=== PATIENT | male | born 1960 | race Caucasian/White ===

== ENCOUNTER 2021-02-05 12:10 | Outpatient (REF) | payer OTHER, SELFPAY ==
[2021-02-05 13:40] LABS: MANUAL DIFF FLAG NO
[2021-02-05 13:48] LABS: Basophils Absolute Auto 0.1 X10*3/uL (0.0-0.2); Basophils Percent Auto 0.9 % (0-2); Eosinophils Absolute Auto 0.1 X10*3/uL (0.0-0.4); Eosinophils Percent Auto 2.6 % (0-4); Hematocrit 44.5 % (42-52); Hemoglobin 15.5 g/dl (14.0-18.0); Imm Gran Abs Auto 0.02 X10*3/uL (0.00-0.03); Imm Gran Pct Auto 0.4 % (0.0-0.4); Lymphocytes Absolute Auto 1.2 X10*3/uL (1.2-4.9); Lymphocytes Percent Auto 22.6 % (20-40); Mean Corpuscular HGB Conc 34.8 g/dl (31.0-36.0); Mean Corpuscular Hemoglobin 32.2 pg (27.0-33.0); Mean Corpuscular Volume 92.3 fL (80-98); Monocytes Absolute Auto 0.4 X10*3/uL (0.1-1.2); Monocytes Percent Auto 7.7 % (2-11); Neutrophils Absolute Auto 3.6 X10*3/uL (2.0-8.3); Neutrophils Percent Auto 65.8 % (45-73); Platelet Count 207 X10*3/uL (160-400); Red Blood Count 4.82 X10*6/uL (4.60-5.80); Red Cell Distribution Width 11.8 % (11.0-16.0); White Blood Count 5.5 X10*3/uL (4.8-10.8)
[2021-02-05 14:52] LABS: Alanine Aminotransferase 25 U/L (0-40); Albumin Level 4.6 g/dL (3.5-5.0); Alkaline Phosphatase 151 U/L (39-117); Aspartate Amino Transferase 25 U/L (5-37); Bilirubin Direct 0.5 mg/dL (0.0-0.5); Gamma Glutamyl Transpeptidase 27 U/L (11-51); Iron 146 mcg/dL (45-160); Percent Iron Saturation 48 % (15-50); Total Iron Binding Capacity 305 mcg/dL (228-428); Total Protein 7.4 g/dL (6.5-8.0); Unsaturated Iron Binding 159 ug/dL
[2021-02-05 15:14] LABS: Ferritin 108 ng/mL (20-250)
[2021-02-06 13:46] LABS: Ceruloplasmin 25 mg/dL (18-36)
[2021-02-08 12:23] LABS: Mitochondrial Antibodies NEGATIVE (NEGATIVE)
[2021-02-08 13:01] LABS: Anti Nuclear Antibody Screen NEGATIVE (NEGATIVE)
[2021-02-12 11:16] LABS: Smooth Muscle Antibody <20 U (<20)
== END 2021-02-05 12:11 | disposition home or self-care (01) ==
LOC: HO.10HDL 12:10
PROVIDERS: PCP Nurse Practitioner Adult Health; Visit Provider Internal Medicine Gastroenterology
DX: R82.90 Unspecified abnormal findings in urine (principal)
CPT/HCPCS: 36415; 80076; 82390; 82728; 82977; 83540; 85025; 86038; 86039; 86255; 86256

== ENCOUNTER 2022-03-30 11:32 | Outpatient (REF) | payer OTHER, SELFPAY ==
[2022-03-30 12:05] LABS: Hematocrit 44.4 % (42.0-52.0); Hemoglobin 15.4 g/dl (14.0-18.0); Mean Corpuscular HGB Conc 34.7 g/dl (31.0-36.0); Mean Corpuscular Hemoglobin 31.8 pg (27.0-33.0); Mean Corpuscular Volume 91.7 fL (80.0-98.0); Mean Platelet Volume 10.3 fL (9.4-12.4); Platelet Count 217 X10*3/uL (160-400); Red Blood Count 4.84 X10*6/uL (4.60-5.80); Red Cell Distribution Width 11.9 % (11.0-16.0); White Blood Count 4.9 X10*3/uL (4.8-10.8)
[2022-03-30 12:41] LABS: Alanine Aminotransferase 25 U/L (0-40); Albumin Level 4.6 g/dL (3.5-5.0); Alkaline Phosphatase 167 U/L (39-117); Aspartate Amino Transferase 42 U/L (5-37); Bilirubin Direct 0.5 mg/dL (0.0-0.5); Bilirubin Total 1.8 mg/dL (0.0-1.0); Total Protein 7.4 g/dL (6.5-8.0)
[2022-03-30 12:57] LABS: Gamma Glutamyl Transpeptidase 27 U/L (11-51)
[2022-04-04 06:27] LABS: Alk.Phos Iso. Macrohepatic 0 % (<=0); Alk.Phos Isoenzymes Bone 65 % (28-66); Alk.Phos Isoenzymes Intest 0 % (1-24); Alk.Phos Isoenzymes Liver 35 % (25-69); Alk.Phos Isoenzymes Placental 0 % (<=0); Alk.Phos Isoenzymes Total 152 U/L (35-144)
== END 2022-03-30 11:33 | disposition home or self-care (01) ==
LOC: HO.LAB 11:32
PROVIDERS: PCP Nurse Practitioner Adult Health; Visit Provider Internal Medicine Gastroenterology
DX: R79.89 Other specified abnormal findings of blood chemistry (principal)
CPT/HCPCS: 36415; 80076; 82977; 84080; 85027

== ENCOUNTER 2022-05-05 06:30 | Day surgery (SDC) | payer MEDICARE, SELFPAY ==
--- NOTE | 2022-05-04 12:50 | HO.ANESPROP2 ---
Documented by User: Sandie Langston NP 05/04/22 12:50 HPI - Anesthesia Eval Consult details Narrative: 61yo M for Colonoscopy FOR[facility] Past Medical History Medical History (Updated 05/04/22 @ 09:57 by Blanca Morocho, RN) Degenerative joint disease Elevated cholesterol Fatty liver Traumatic brain injury Surgical History Surgical History (Updated 05/04/22 @ 09:59 by Blanca Morocho RN) Hx of appendectomy Hx of cholecystectomy Hx of colonoscopy Hx of knee surgery Hx of total knee replacement Social History Social History Patient Tobacco Use Status: Current someday Tobacco user Tobacco use type: Cigar Use of substances other than those prescribed or required for medical reasons: No Are you DNR?: No Advance Directives: No Advance Directives Information Provided: Yes Meds Allergies Allergy/AdvReac Type Severity Reaction Status Date / Time Penicillin Allergy Unknown diarrhea Verified 05/05/22 06:47 Wellbutrin Allergy Unknown SI, Verified 05/05/22 06:47 Paranoia Home Medications Medication Instructions Recorded Confirmed Last Taken Type Probiotic 05/04/22 05/04/22 Unknown History cholecalciferol (vitamin D3) 25 25 mcg PO DAILY 05/04/22 05/04/22 Unknown History mcg (1,000 unit) capsule (Vitamin D3) turmeric root extract 500 mg 500 mg PO DAILY 05/04/22 05/04/22 Unknown History capsule Exam Exam Date and Time: May 04, 2022 1250 Assessment and Plan Assessment Anesthesia Assessment: Chart Reviewed Documented by User: Elder Beal MD 05/05/22 16:22 [facility] Past Medical History Medical History (Updated 05/04/22 @ 09:57 by Blanca Morocho RN) Degenerative joint disease Elevated cholesterol Fatty liver Traumatic brain injury Functional capacity: independent ambulation Family History Family history of problems with anesthesia: No Surgical History Surgical History (Updated 05/04/22 @ 09:59 by Blanca Morocho RN) Hx of appendectomy Hx of cholecystectomy Hx of colonoscopy Hx of knee surgery Hx of total knee replacement History of Problems with Anesthesia: No Social History Social History Patient Tobacco Use Status: Current someday Tobacco user Tobacco use type: Cigar Use of substances other than those prescribed or required for medical reasons: No Are you DNR?: No Advance Directives: No Advance Directives Information Provided: Yes Meds Allergies Allergy/AdvReac Type Severity Reaction Status Date / Time Penicillin Allergy Unknown diarrhea Verified 05/05/22 06:47 Wellbutrin Allergy Unknown SI, Verified 05/05/22 06:47 Paranoia Home Medications Medication Instructions Recorded Confirmed Last Taken Type Probiotic 05/04/22 05/04/22 Unknown History cholecalciferol (vitamin D3) 25 25 mcg PO DAILY 05/04/22 05/04/22 Unknown History mcg (1,000 unit) capsule (Vitamin D3) turmeric root extract 500 mg 500 mg PO DAILY 05/04/22 05/04/22 Unknown History capsule Exam Airway Mallampati Class: III TM Dist: >3cm Neck ROM: Full Loose/Missing/Broken Teeth: Yes (Fillings ) Heart: S1,S2 Lungs: b/l breath sounds Assessment and Plan Assessment Anesthesia Assessment: Anesthesia Plan Discussed Final Anesthetic Review Family History of Problems with Anesthesia: No History of Problems with Anesthesia: No NPO: Yes ASA Class: II Final Preanesthetic Review: Meds/Allgs Chart Reviewed, Consent Obtained/Reviewed and Anes Risks/Benef Reviewed Patient Risk: Intermediate Procedure Risk: Intermediate Anesthetic Plan Anesthetic Plan: MAC: Disposition: Standard PACU
[2022-05-05 06:48] VITALS: BP 159/77; PULSE 72; RESP 16; TEMP 36.1; O2SAT 99; BMI 30.8
[2022-05-05] MEDS: Lactated Ringers 1,000 ML 100 ML IVCONT (06:57)
--- NOTE | 2022-05-05 07:29 | MHC.SHP ---
Pre-Procedural Eval Section A Date of Service: 05/05/22 Section B Chief Complaint: screening Details of Present Illness: see H&P no changes Relevant Family History (Specify if Yes): Yes Relevant Social History: None Present Medications: see Short Stay Collaborative assessment Medical History: No relevant PMH History of Previous Operations: No relevant previous surgery Allergies: Allergies Allergy/AdvReac Type Severity Reaction Status Date / Time Penicillin Allergy Unknown diarrhea Verified 05/05/22 06:47 Wellbutrin Allergy Unknown SI, Verified 05/05/22 06:47 Paranoia Review of Systems Sugical H&P ROS: Negative: Constitution, Cardiovascular, Respiratory, Neurological, Psychiatric, Hem-Onc, Allergic/Immunologic, Gastrointestinal, Genitourinary, Musculoskeletal, Integumentary, Endocrine and Eyes/Ears/Nose/Throat Exam Surgical H&P Exam: Normal: HEENT, Normal: Heart, Normal: Lungs, Normal: Extremities, Normal: Abdomen, Normal: Skin and Normal: Neurological Plan Diagnosis/Plan: Unchanged I have reviewed the history and physical and performed a pertinent physical examination on my patient. No changes have occurred unless specified.
[2022-05-05 08:05] VITALS: BP 116/69; PULSE 67; RESP 17; TEMP 36.3; O2SAT 96
--- NOTE | 2022-05-05 08:05 | P.BOP_ITS ---
Brief Operative Note Date of Service: 05/05/22 Pre-op diagnosis: screening Post-op diagnosis: same Procedure: colonoscopy Surgeon: Percy Torres Anesthesia: MAC Was an Health Psychologist used for this Procedure?: No Estimated blood loss (mL): 5 Pathology: other Condition: stable Disposition: PACU
[2022-05-05 08:20] VITALS: BP 122/80; PULSE 68; RESP 16; TEMP 36.9; O2SAT 99
--- NOTE | 2022-05-05 08:53 | OP_ITS ---
SURGEON: Percy Torres MD INDICATIONS: Colon cancer screening and family history of colon cancer. PREOPERATIVE DIAGNOSIS: POSTOPERATIVE DIAGNOSIS: PROCEDURE PERFORMED: Colonoscopy to the terminal ileum with biopsy. ESTIMATED BLOOD LOSS: COMPLICATIONS: ANESTHESIA: Monitored anesthesia care. ASSISTANTS: SPECIMENS: DESCRIPTION OF PROCEDURE: The procedure was performed on 05/05/2022. History and physical performed. The risks and benefits of the procedure were explained to the patient. Informed consent was obtained. The patient was placed in the left lateral decubitus position. A digital rectal exam was performed and was found to be normal. The Olympus pediatric video-colonoscope was introduced into the rectum and advanced to the cecum without difficulty. The cecum was identified by transillumination, palpation, and identification of ileocecal valve. Examination was performed. The scope was removed. He tolerated the procedure well and was taken to recovery in stable condition. FINDINGS: The terminal ileum showed a focal area of ileitis near the ileocecal valve. The biopsies were obtained from the mucosa. The visualized colonic mucosa was within normal limits without evidence of masses, ulcers, or polyps. The quality of prep was good. Retroflexed examination showed small internal hemorrhoids. IMPRESSION: Ileitis. RECOMMENDATIONS: 1. Follow up with the biopsy results. 2. Repeat colonoscopy could be considered in 5 years based on family history. MD DIANE Perez/ANNI / [id number]
== END 2022-05-05 08:47 | disposition home or self-care (01) ==
PROVIDERS: PCP Nurse Practitioner Adult Health; Visit Provider Internal Medicine Gastroenterology
PROC: 0DJD8ZZ Inspection of Lower Intestinal Tract, Via Natural or Artificial Opening Endoscopic (ICD-10-PCS; CPT 45378; principal; 2022-05-05 07:30)
DX: Z12.11 Encounter for screening for malignant neoplasm of colon (principal); K52.9 Noninfective gastroenteritis and colitis, unspecified; Z79.899 Other long term (current) drug therapy; Z80.0 Family history of malignant neoplasm of digestive organs; Z88.0 Allergy status to penicillin; K64.8 Other hemorrhoids
CPT/HCPCS: G0105; 88305